=== PATIENT | female | born 1970 | race African-American/Black ===

== ENCOUNTER 2017-04-19 20:49 | Emergency (ER) | payer OTHER ==
[2017-04-19 20:59] VITALS: BP 129/79
--- NOTE | 2017-04-19 21:15 | UC ---
Skin Complaint HPI - HPI Summary HPI Summary: 46 YEAR OLD FEMALE PRESENTS WITH COMPLAINS OF RASH ON THE BACK OF HER LEFT CALF. - History of Current Complaint Chief Complaint: UCRash Time Seen by Provider: 04/19/17 21:09 Stated Complaint: RASH INFLAMED Hx Last Menstrual Period: 03/30/17 - Allergy/Home Medications Allergies/Adverse Reactions: Allergies Allergy/AdvReac Type Severity Reaction Status Date / Time No Known Allergies Allergy Verified 11/28/15 08:55 Review of Systems Constitutional: Negative Skin: Rash Eyes: Negative ENT: Negative Respiratory: Negative Cardiovascular: Negative Gastrointestinal: Negative Genitourinary: Negative Motor: Negative Neurovascular: Negative Musculoskeletal: Negative Neurological: Negative Psychological: Negative All Other Systems Reviewed And Are Negative: Yes PMH/Surg Hx/FS Hx/Imm Hx Previously Healthy: Yes - Surgical History Surgical History: Yes Surgery Procedure, Year, and Place: HERNIA REPAIR - Family History Known Family History: Positive: None - Social History Alcohol Use: Weekly Substance Use Type: None Smoking Status (MU): Never Smoked Tobacco Physical Exam Triage Information Reviewed: Yes Vital Signs: Initial Vital Signs Temp 36.8 C 04/19/17 20:56 Pulse 81 04/19/17 20:56 Resp 18 04/19/17 20:56 BP 129/79 04/19/17 20:56 Pulse Ox 100 04/19/17 20:56 Eye Exam: Normal ENT Exam: Normal Dental Exam: Normal Neck exam: Normal Neck: Positive: 1 Respiratory Exam: Normal Cardiovascular Exam: Normal Abdominal Exam: Normal Musculoskeletal Exam: Normal Neurological Exam: Normal Psychological Exam: Normal Skin: Positive: rashes - POSTERIOR LEFT CALF Course/Dx - Diagnoses Provider Diagnoses: RASH. INSECT BITE Discharge - Discharge Plan Condition: Stable Disposition: HOME Prescriptions: Cephalexin CAP* [Keflex CAP*] 500 mg PO TID #30 cap LoraTADine TAB(NF) [Claritin 10 MG TAB(NF)] 10 mg PO DAILY #30 tab predniSONE TAB* [Deltasone TAB*] 40 mg PO DAILY #10 tab Patient Education Materials: Acute Rash (ED) Referrals: No Primary Care Phys,NOPCP [Primary Care Provider] -
[2017-04-19] MEDS ORDERED: LoraTADine TAB(NF) 10 MG TAB (AUTOSUB to CETIRIZINE) PO ONE (21:17)
[2017-04-19] MEDS ORDERED: predniSONE TAB* 20 MG PO ONE (21:17)
[2017-04-19] MEDS ORDERED: Cephalexin CAP* 500 MG PO ONE (21:18)
== END 2017-04-19 21:37 | disposition home or self-care (01) ==
LOC: UCEAST 20:49
DX: R21 Rash and other nonspecific skin eruption (principal); S80.862A Insect bite (nonvenomous), left lower leg, initial encounter; W57.XXXA Bitten or stung by nonvenomous insect and other nonvenomous arthropods, initial encounter
CPT/HCPCS: 99213; A9270-GY; G0463; J7512